=== PATIENT | male | born 1970 ===

== ENCOUNTER → 2022-09-27 | Day surgery (SDC) | payer OTHER ==
[~2022-09-27] VITALS: Ht 200.7 cm; Wt 121.1 kg
[~2022-09-27] MED LIST: ZESTRIL10 M1 PO
== END | disposition home or self-care (01) ==
LOC: CIR.AMB 06:05
PROVIDERS: ATTEND Surgery
DX: K80.10 Calculus of gallbladder with chronic cholecystitis without obstruction (principal); Z88.0 Allergy status to penicillin; Z91.018 Allergy to other foods; Z20.822 Contact with and (suspected) exposure to COVID-19